=== PATIENT | female | born 1945 | race Caucasian/White ===

== ENCOUNTER → 2016-04-08 | Day surgery (SDC) | payer MEDICARE, OTHER ==
[~2016-04-08] MED LIST: B12,B-12,B 12500 MC1 PO; CIPRO250 MG PO; CIPROFLOXACIN250 MG PO; CYMBALTA30 MG PO; CYMBALTA60 MG PO; DARVOCET N 1001 TAB PO; FOSAMAX70 MG PO; HYDROCODONE BIT1 T11 PO; KEFLEX500 MG PO; LASIX40 MG PO; LEVOTHYROXIN0.075 MG PO; MECLIZINE12.5 MG PO; MIRALAX17 GM/DOSE PO; MOBIC7.5 MG PO; MOTRIN800 MG PO; NORCO 325 MG-51 TAB PO; NORVASC2.5 MG PO; NYSTATIN CREAM15 GM T; OXYBUTYNIN5 MG PO; POTASSIUM CHLO10 MEQ PO; PREVACID30 M1 PO; PROAIR HFA0.09 MG/AC INH; PYRIDIUM200 MG PO; REQUIP0.5 MG PO; SERTRALINE HCL100 MG PO; TRAMADOL HCL50 MG PO; TRAZADONE HYDR100 MG PO; TRAZODONE100 MG PO; VENTOLIN0.09 MG/AC INH; VITAMIN D31000 I1 PO; ZOCOR20 MG PO; [UNRECOGNIZED DRUG - REMARK]
--- NOTE | ~2016-04-08 | O ---
[place], [place] OPERATIVE NOTE NAME: DANIEL MANLEY UNIT #: [id number] ROOM: DOCTOR: TOMMIE CLARK,MARIO BIRTHDATE: [birth year] DOS: 04/08/2016 GASTROENDOSCOPIC REPORT INDICATIONS: The patient has presented with chief complaint of epigastric distress, dyspepsia, constipation on MiraLax, on multi-medications and Prevacid. PROCEDURE: Today's procedure part of investigation is panendoscopy plus biopsy. PREMEDICATION: Versed and Diprivan. SCOPE: Olympus forward-viewing gastroscope Q10 video. REPORT: After putting the patient in the left lateral position and after application of lubricant to the scope, the scope was introduced. Thereafter, under direct visualization, I advanced through the length of esophagus without difficulty. Esophagus, cervicothoracic distally carefully examined. Gastric pouch was entered. Gastritis was noticed. Duodenal bulb, second and third part within normal limits. The patient extubated, tolerated procedure well. IMPRESSION: Small hiatal hernia, gastritis, status post biopsy. PLAN: Continuation with Prevacid 30 mg daily. Continuation with MiraLax. Continuation with Mobic; however, on p.r.n. base and on full stomach. Follow up routinely with you in office, p.r.n. visit with us in [facility]. MARIO REILLY MD CM:OPRECORD:OPERATIVE NOTE [id number] MARIO REILLY MD 04/08/16 1327 interface
--- NOTE | ~2016-04-08 | O ---
[place], [place] OPERATIVE NOTE NAME: DANIEL MANLEY UNIT #: [id number] ROOM: DOCTOR: MARIO REILLY MD BIRTHDATE: [birth year] DOS: 04/08/2016 INDICATIONS: This is a 70-year-old obese patient who presented with chief complaint of epigastric abdominal pain, dyspepsia as well as constipation, change in bowel habits, undergoing investigation. PAST MEDICAL HISTORY: Associated with hypertension, COPD, gastroesophageal reflux, hypothyroidism, chronic renal disease, dyspepsia. PAST SURGICAL HISTORY: Hysterectomy, neck fusion. ALLERGIES: PENICILLIN, SULFA, ASPIRIN, CODEINE, HYDROMORPHONE, TYLENOL. SOCIAL HISTORY: Nonsmoker, nonalcohol consumer. FAMILY HISTORY: Noncontributory. PROCEDURE: Today's procedure part of investigation is colonoscopy panendoscopy. PREMEDICATION: Versed and Diprivan. SCOPE: Olympus forward viewing colonoscope 10L video. Colon, mucosa, and vascularity carefully examined. Tortuosity of the colon appreciated. Base of the cecum explored, appendiceal orifice identified, photographed. Scope was gradually withdrawn. The patient extubated, tolerated procedure well. IMPRESSION: Tortuous colon, sessile polypoid lesion hepatic flexure, status post piecemeal polypectomy. PLAN AND DISCUSSION: We are going to proceed with panendoscopy. As far as the colon, constipation is concerned, the patient's limited activity and multi-medications on board including pain medication could be the culprit. On the other hand, the patient on Prevacid and Mobic. She is on MiraLax. The patient needs to have a panendoscopy. [place], [place] OPERATIVE NOTE NAME: DANIEL MANLEY UNIT #: [id number] ROOM: DOCTOR: MARIO REILLY MD BIRTHDATE: [birth year] MARIO REILLY MD CM:OPRECORD:OPERATIVE NOTE [id number] AFUA REILLY MD 04/08/16 1325 interface
[2016-04-08 07:02] VITALS: BP 132/67
[2016-04-08 08:08] VITALS: BP 127/55
[2016-04-08 08:13] VITALS: BP 127/71
[2016-04-08 08:28] VITALS: BP 127/71
== END | disposition home or self-care (01) ==
LOC: SDC 04-02 10:15
DX: K63.5 Polyp of colon (principal); K63.89 Other specified diseases of intestine; K29.50 Unspecified chronic gastritis without bleeding; K44.9 Diaphragmatic hernia without obstruction or gangrene; K21.9 Gastro-esophageal reflux disease without esophagitis; I10 Essential (primary) hypertension; J44.9 Chronic obstructive pulmonary disease, unspecified; E03.9 Hypothyroidism, unspecified; Z90.710 Acquired absence of both cervix and uterus; F32.9 Major depressive disorder, single episode, unspecified; F41.9 Anxiety disorder, unspecified; M19.90 Unspecified osteoarthritis, unspecified site; F43.10 Post-traumatic stress disorder, unspecified; D64.9 Anemia, unspecified; E53.8 Deficiency of other specified B group vitamins; E66.9 Obesity, unspecified; Z82.49 Family history of ischemic heart disease and other diseases of the circulatory system; Z87.891 Personal history of nicotine dependence

== ENCOUNTER → 2016-09-25 | Outpatient (CLI) | payer MEDICARE, OTHER ==
[~2016-09-25] MED LIST changes: +CIPRO500 MG PO; +DOK100 M1 PO; +GOOD NEIGHBOR M25 M1 PO; +KEFLEX500 M1 PO; -MECLIZINE12.5 MG PO; +NORCO 7.5-3251 EACH PO; +OMEPRAZOLE20 M2 PO
== END | disposition home or self-care (01) ==
LOC: RAD 11:30
DX: M81.0 Age-related osteoporosis without current pathological fracture (principal)

== ENCOUNTER 2016-09-28 07:46 | Emergency (ER) | payer MEDICARE, OTHER ==
[~2016-09-28] VITALS: Ht 165.1 cm; Wt 113.4 kg
[~2016-09-28 07:46] MED LIST changes: -CIPRO500 MG PO; -DOK100 M1 PO; -KEFLEX500 M1 PO; -NORCO 7.5-3251 EACH PO; -OMEPRAZOLE20 M2 PO
[2016-09-28] MEDS ORDERED: OMEPRAZOLE20 M2 PO (07:58)
[2016-09-28] MEDS ORDERED: NORCO 7.5-3251 EACH PO (08:01)
[2016-09-28] MEDS ORDERED: DOK100 M1 PO (08:02)
[2016-09-28 09:33] LABS: BASO % 0.7 % (0.0-1.0); EOS # 0.3 10*3/uL (0.0-0.4); EOS % 4.8 % (1.0-4.0); HEMATOCRIT 36.6 % (37.0-47.0); HEMOGLOBIN 11.8 g/dl (12.0-16.0); LYMPH # 1.7 10*3/uL (1.3-4.4); LYMPH % 29.6 % (27.0-41.0); MEAN CELL VOLUME 92.2 fl (81.0-99.0); MEAN CORPUSCULAR HGB 29.7 pg (27.0-31.0); MEAN CORPUSCULAR HGB CONC 32.2 g/dl (33.0-37.0); MEAN PLATELET VOLUME 9.9 fl (9.6-12.3); MONO # 0.3 10*3/uL (0.1-1.0); MONO % 5.8 % (3.0-9.0); NEUT # 3.3 10*3/uL (2.3-7.9); NEUT % 58.9 % (47.0-73.0); PLATELET COUNT AUTOMATED 169 10*3/uL (130-400); RED BLOOD COUNT 3.97 10*6/uL (4.10-5.10); RED CELL DISTRI WIDTH 12.2 % (0-14.5); WHITE BLOOD COUNT 5.7 10*3/uL (4.8-10.8)
[2016-09-28 09:39] LABS: PROTHROMBIN TIME 10.6 SECONDS (9.0-12.4)
[2016-09-28 09:50] LABS: BILIRUBIN NEGATIVE (NEGATIVE); BLOOD NEGATIVE (NEGATIVE); CLARITY CLOUDY (CLEAR); COLOR YELLOW (YELLOW); GLUCOSE NEGATIVE (NEGATIVE); KETONE TRACE (NEGATIVE); LEUKO ESTERASE 1+ (NEGATIVE); NITRITE POSITIVE (NEGATIVE); PH 7.5 (5.0-9.0); PROTEIN NEGATIVE (NEGATIVE); UROBILINOGEN 0.2 E.U./dl (0.2-1.0)
[2016-09-28 09:52] LABS: ALBUMIN 3.1 gm/dl (3.1-4.5); ALKALINE PHOSPHATASE 59 U/L (45-117); BILIRUBIN, TOTAL 0.3 mg/dl (0.2-1.0); BUN 11 mg/dl (7-24); C-REACTIVE PROTEIN 0.54 MG/DL (0-0.3); CARBON DIOXIDE 28 mmol/L (21-32); CHLORIDE 110 mmol/L (98-107); CPK 57 U/L (26-192); EST GLOM FILT AFRICAN AMERICAN 45 ml/min; GLUCOSE 95 mg/dL (65-99); MAGNESIUM 1.9 mg/dL (1.5-2.1); POTASSIUM 3.7 mmol/L (3.5-5.1); SGOT/AST 18 IU/L (3-35); SGPT/ALT 16 U/L (12-78); SODIUM 144 mmol/L (136-145); TOTAL PROTEIN 6.3 gm/dL (6.4-8.2)
[2016-09-28 09:53] LABS: CKMB < 0.5 ng/ml (0.5-3.6); TROPONIN I < 0.015 ng/ml (<0.045)
[2016-09-28 10:01] LABS: BACTERIA 4+; URINE REFLEX COMMENT YES (NO)
[2016-09-28 10:14] VITALS: BP 133/75
[2016-09-28] MEDS ORDERED: CIPRO500 MG PO (10:18)
[2016-09-28] MEDS ORDERED: KEFLEX500 M1 PO (10:24)
== END 2016-09-28 10:20 ==
LOC: ED 07:46
PROVIDERS: Internal Medicine
DX: G89.29 Other chronic pain (principal); M25.562 Pain in left knee; M25.552 Pain in left hip; M54.9 Dorsalgia, unspecified; N18.9 Chronic kidney disease, unspecified; Z88.0 Allergy status to penicillin; Z88.2 Allergy status to sulfonamides; Z88.6 Allergy status to analgesic agent; Z88.8 Allergy status to other drugs, medicaments and biological substances; Z79.899 Other long term (current) drug therapy; W18.30XA Fall on same level, unspecified, initial encounter; Y93.89 Activity, other specified; Y92.9 Unspecified place or not applicable; Y99.9 Unspecified external cause status

== ENCOUNTER → 2017-01-07 | Outpatient (CLI) | payer MEDICARE, OTHER ==
[~2017-01-07] MED LIST changes: +CIPRO500 MG PO; +DOK100 M1 PO; +KEFLEX500 M1 PO; +NORCO 7.5-3251 EACH PO; +OMEPRAZOLE20 M2 PO
== END | disposition home or self-care (01) ==
LOC: NM 00:48
DX: K80.20 Calculus of gallbladder without cholecystitis without obstruction (principal); K59.00 Constipation, unspecified

== ENCOUNTER → 2017-09-10 | Outpatient (CLI) | payer MEDICARE, OTHER | END | disposition home or self-care (01) | LOC: RAD 03:08 | DX: Z13.820 Encounter for screening for osteoporosis (principal); M81.0 Age-related osteoporosis without current pathological fracture; N95.9 Unspecified menopausal and perimenopausal disorder; M19.90 Unspecified osteoarthritis, unspecified site ==

== ENCOUNTER → 2018-06-23 | Outpatient (CLI) | payer MEDICARE, OTHER | END | disposition home or self-care (01) | LOC: MAMMO 10:37 | DX: Z12.31 Encounter for screening mammogram for malignant neoplasm of breast (principal); R10.2 Pelvic and perineal pain ==

== ENCOUNTER → 2018-07-01 | Outpatient (CLI) | payer MEDICARE, OTHER | END | disposition home or self-care (01) | LOC: CT 06-27 10:00 | DX: R43.0 Anosmia (principal); H57.11 Ocular pain, right eye; R42 Dizziness and giddiness; I10 Essential (primary) hypertension ==

== ENCOUNTER → 2018-09-22 | Outpatient (CLI) | payer MEDICARE, OTHER | END | disposition home or self-care (01) | LOC: MRI 01:27 | DX: G91.9 Hydrocephalus, unspecified (principal); R51 Headache; H53.8 Other visual disturbances; H93.13 Tinnitus, bilateral ==

== ENCOUNTER → 2020-05-16 | Day surgery (SDC) | payer MEDICARE, OTHER ==
[~2020-05-16] VITALS: Ht 157.4 cm; Wt 95.7 kg
[~2020-05-16] MED LIST changes: +ALENDRONATE SOD35 M1 PO; +ARTIFICIAL TEA1 EACH OU; +ASPERCREME LIDO73 ML T; +CALTRATE 600 +1 EACH PO; +CENTRUM SILVER1 EACH PO; +CLARITIN10 MG PO; +CRANBERRY URIN1 EACH PO; +FLONASE ALLERG9.9 ML NAS; +GOOD NEIGHBOR P20 MG PO; -LEVOTHYROXIN0.075 MG PO; +LEVOTHYROXINE125 MCG PO; +MILK OF MA400 MG/5 M PO; +MORPHINE SULFAT15 MG PO; +ONDANSETRON HYDR4 M1 PO; +PERCOCET 5-3251 EACH PO; +PRISTIQ50 MG PO; +PROPRANOLOL HCL10 MG PO; +Percocet 325 MG1 TAB PO; +REFRESH OPTIVE10 M2 OU; +TYLENOL325 M1 PO; +ZOFRAN4 MG PO
[2020-05-16 07:15] VITALS: BP 126/71
[2020-05-16 09:25] VITALS: BP 128/90
[2020-05-16 09:40] VITALS: BP 143/63
[2020-05-16 09:55] VITALS: BP 154/73
[2020-05-16 10:10] VITALS: BP 149/69
[2020-05-16 10:55] VITALS: BP 152/71
== END ==
LOC: SDC 05-13 09:30
PROVIDERS: ATTEND Surgery
DX: K80.10 Calculus of gallbladder with chronic cholecystitis without obstruction (principal); I25.10 Atherosclerotic heart disease of native coronary artery without angina pectoris; R11.2 Nausea with vomiting, unspecified; J44.9 Chronic obstructive pulmonary disease, unspecified; E03.9 Hypothyroidism, unspecified; F41.9 Anxiety disorder, unspecified; F32.9 Major depressive disorder, single episode, unspecified; I12.9 Hypertensive chronic kidney disease with stage 1 through stage 4 chronic kidney disease, or unspecified chronic kidney disease; N18.30 Chronic kidney disease, stage 3 unspecified; E66.9 Obesity, unspecified; Z79.899 Other long term (current) drug therapy; Z88.0 Allergy status to penicillin; Z88.2 Allergy status to sulfonamides; Z88.6 Allergy status to analgesic agent; Z88.8 Allergy status to other drugs, medicaments and biological substances

== ENCOUNTER → 2020-05-28 | Outpatient (CLI) | payer MEDICARE, OTHER ==
[2020-05-28 10:36] LABS: BASO # 0.1 10*3/uL (0.0-0.1); BASO % 0.7 % (0.0-1.0); EOS # 0.4 10*3/uL (0.0-0.4); EOS % 4.4 % (1.0-4.0); HEMATOCRIT 38.6 % (37.0-47.0); LYMPH # 2.1 10*3/uL (1.3-4.4); LYMPH % 22.7 % (27.0-41.0); MEAN CELL VOLUME 95.1 fl (81.0-99.0); MEAN CORPUSCULAR HGB 29.8 pg (27.0-31.0); MEAN CORPUSCULAR HGB CONC 31.3 g/dl (33.0-37.0); MEAN PLATELET VOLUME 9.6 fl (9.6-12.3); MONO # 0.5 10*3/uL (0.1-1.0); MONO % 5.2 % (3.0-9.0); NEUT % 66.2 % (47.0-73.0); PLATELET COUNT AUTOMATED 392 10*3/uL (130-400); RED BLOOD COUNT 4.06 10*6/uL (4.10-5.10); RED CELL DISTRI WIDTH 12.2 % (0-14.5)
[2020-05-28 11:08] LABS: ALBUMIN 2.8 gm/dl (3.1-4.5); CREATININE 1.21 mg/dL (0.55-1.02)
== END | disposition home or self-care (01) ==
LOC: LAB 10:11
PROVIDERS: ATTEND Surgery
DX: R11.2 Nausea with vomiting, unspecified (principal)

== ENCOUNTER → 2020-05-30 | Outpatient (CLI) | payer MEDICARE, OTHER | END | disposition home or self-care (01) | LOC: NM 06:55 | PROVIDERS: ATTEND Surgery | DX: R11.2 Nausea with vomiting, unspecified (principal) ==

== ENCOUNTER → 2020-06-07 | Outpatient (CLI) | payer MEDICARE, OTHER | END | disposition home or self-care (01) | LOC: CT 08:51 → LAB 09:00 → CT 09:00 | PROVIDERS: ATTEND Surgery | DX: Z01.818 Encounter for other preprocedural examination (principal); K52.9 Noninfective gastroenteritis and colitis, unspecified; R23.3 Spontaneous ecchymoses; N26.1 Atrophy of kidney (terminal); J98.11 Atelectasis; Z90.49 Acquired absence of other specified parts of digestive tract ==

== ENCOUNTER → 2021-06-10 | Outpatient (CLI) | payer MEDICARE, OTHER ==
[~2021-06-10] MED LIST changes: +CEFUROXIME AXE250 MG PO; +CETIRIZINE HYDR10 MG PO; +HYDROXYZINE PAM25 M1 PO; +MECLIZINE HCL25 M2 PO; +PRISTIQ100 MG PO; +VITAMIN D350 MC2 GT
== END | disposition home or self-care (01) ==
LOC: CT 09:00
PROVIDERS: ATTEND Internal Medicine
DX: K44.9 Diaphragmatic hernia without obstruction or gangrene (principal); M47.816 Spondylosis without myelopathy or radiculopathy, lumbar region; N26.1 Atrophy of kidney (terminal)

== ENCOUNTER 2022-10-22 10:22 | Emergency (ER) | payer MEDICARE ==
[~2022-10-22] VITALS: Wt 98.9 kg
[2022-10-22 10:38] VITALS: BP 103/48
[2022-10-22 10:50] LABS: BASO # 0.1 10*3/uL (0.0-0.1); BASO % 0.4 % (0.0-1.0); EOS % 0.3 % (1.0-4.0); HEMATOCRIT 35.4 % (37.0-47.0); LYMPH # 1.7 10*3/uL (1.3-4.4); LYMPH % 13.6 % (27.0-41.0); MEAN CELL VOLUME 94.7 fl (81.0-99.0); MEAN CORPUSCULAR HGB CONC 32.8 g/dl (33.0-37.0); MEAN PLATELET VOLUME 10.4 fl (9.6-12.3); MONO # 1.4 10*3/uL (0.1-1.0); MONO % 11.3 % (3.0-9.0); NEUT # 9.3 10*3/uL (2.3-7.9); PLATELET COUNT AUTOMATED 130 10*3/uL (130-400); RED BLOOD COUNT 3.74 10*6/uL (4.10-5.10); RED CELL DISTRI WIDTH 12.1 % (0-14.5); WHITE BLOOD COUNT 12.6 10*3/uL (4.8-10.8)
[2022-10-22 11:15] LABS: POTASSIUM 4.4 mmol/L (3.4-5.1); TOTAL PROTEIN 5.9 gm/dL (6.0-8.0)
[2022-10-22 11:58] LABS: BILIRUBIN Negative (Negative); BLOOD 2+ (Negative); CLARITY Turbid (Clear); COLOR Dark Yellow (Yellow); GLUCOSE Negative (Negative); KETONE Trace (Negative); LEUKO ESTERASE 3+ (Negative); NITRITE Positive (Negative)
[2022-10-22 12:20] LABS: BACTERIA 4+; WBC TNTC wbc/hpf (0-5)
[2022-10-22] MEDS ORDERED: TRAMADOL HCL50 MG PO (14:10)
[2022-10-22] MEDS ORDERED: CIPRO500 MG PO (14:10)
== END 2022-10-22 15:05 | disposition home or self-care (01) ==
LOC: ED 10:22
PROVIDERS: Emergency Medicine
DX: N39.0 Urinary tract infection, site not specified (principal); F32.A Depression, unspecified; F41.9 Anxiety disorder, unspecified; M19.90 Unspecified osteoarthritis, unspecified site; D64.9 Anemia, unspecified; Z88.0 Allergy status to penicillin; Z88.2 Allergy status to sulfonamides; Z88.5 Allergy status to narcotic agent; Z88.8 Allergy status to other drugs, medicaments and biological substances; Z90.89 Acquired absence of other organs; Z90.710 Acquired absence of both cervix and uterus; Z98.890 Other specified postprocedural states

== ENCOUNTER 2023-02-22 18:13 | Emergency (ER) | payer MEDICARE ==
[2023-02-22 18:21] VITALS: BP 118/60
== END 2023-02-22 21:27 | disposition home or self-care (01) ==
LOC: ED 18:13
DX: S93.401A Sprain of unspecified ligament of right ankle, initial encounter (principal); F32.A Depression, unspecified; F41.9 Anxiety disorder, unspecified; M19.90 Unspecified osteoarthritis, unspecified site; N18.9 Chronic kidney disease, unspecified; J44.9 Chronic obstructive pulmonary disease, unspecified; E87.6 Hypokalemia; D64.9 Anemia, unspecified; Z88.0 Allergy status to penicillin; Z88.2 Allergy status to sulfonamides; Z88.6 Allergy status to analgesic agent; Z88.5 Allergy status to narcotic agent; Z88.8 Allergy status to other drugs, medicaments and biological substances; Z90.710 Acquired absence of both cervix and uterus; Z90.89 Acquired absence of other organs; W19.XXXA Unspecified fall, initial encounter; Y93.89 Activity, other specified; Y92.129 Unspecified place in nursing home as the place of occurrence of the external cause; Y99.8 Other external cause status

== ENCOUNTER 2023-05-26 08:36 | Emergency (ER) | payer MEDICARE, OTHER ==
[~2023-05-26] VITALS: Ht 167.6 cm; Wt 90.7 kg
[2023-05-26] MEDS ORDERED: Acetaminophen/Oxycodone 5 MG/325 MG TABLET PO ONE (08:50)
[2023-05-26 10:28] VITALS: BP 120/48
== END 2023-05-26 14:19 ==
LOC: ED 08:36
DX: S09.8XXA Other specified injuries of head, initial encounter (principal); M54.50 Low back pain, unspecified; M25.551 Pain in right hip; F32.A Depression, unspecified; F41.9 Anxiety disorder, unspecified; M19.90 Unspecified osteoarthritis, unspecified site; D64.9 Anemia, unspecified; J44.9 Chronic obstructive pulmonary disease, unspecified; Z88.0 Allergy status to penicillin; Z88.2 Allergy status to sulfonamides; Z88.5 Allergy status to narcotic agent; Z88.6 Allergy status to analgesic agent; Z88.8 Allergy status to other drugs, medicaments and biological substances; Z90.710 Acquired absence of both cervix and uterus; Z90.89 Acquired absence of other organs; Z98.890 Other specified postprocedural states; W07.XXXA Fall from chair, initial encounter; Y93.89 Activity, other specified; Y92.129 Unspecified place in nursing home as the place of occurrence of the external cause; Y99.8 Other external cause status

== ENCOUNTER 2023-06-20 22:20 | Emergency (ER) | payer MEDICARE, OTHER ==
[~2023-06-20] VITALS: Ht 157.4 cm; Wt 90.7 kg
[2023-06-21 06:36] VITALS: BP 125/62
== END 2023-06-21 07:16 ==
LOC: ED 22:20
DX: S00.93XA Contusion of unspecified part of head, initial encounter (principal); G91.2 (Idiopathic) normal pressure hydrocephalus; F32.A Depression, unspecified; F41.9 Anxiety disorder, unspecified; M19.90 Unspecified osteoarthritis, unspecified site; D64.9 Anemia, unspecified; J44.9 Chronic obstructive pulmonary disease, unspecified; Z88.0 Allergy status to penicillin; Z88.2 Allergy status to sulfonamides; Z88.5 Allergy status to narcotic agent; Z88.8 Allergy status to other drugs, medicaments and biological substances; Z90.710 Acquired absence of both cervix and uterus; Z90.89 Acquired absence of other organs; Z98.890 Other specified postprocedural states; W05.0XXA Fall from non-moving wheelchair, initial encounter; Y93.89 Activity, other specified; Y92.129 Unspecified place in nursing home as the place of occurrence of the external cause; Y99.8 Other external cause status

== ENCOUNTER 2023-12-25 00:53 | Observation (INO) | payer OTHER ==
[~2023-12-25] VITALS: Ht 157.5 cm; Wt 77.8 kg
[2023-12-25] VITALS (9 sets, daily range): BP systolic 90–126; BP diastolic 29–81
[~2023-12-25 00:53] MED LIST changes: +OXYBUTYNIN CHLOR5 M1 PO; -OXYBUTYNIN5 MG PO
[2023-12-25 01:53] LABS: BASO % 0.5 % (0.0-1.0); EOS # 0.1 10*3/uL (0.0-0.4); EOS % 0.7 % (1.0-4.0); LYMPH # 1.3 10*3/uL (1.3-4.4); LYMPH % 14.7 % (27.0-41.0); MEAN CELL VOLUME 103.4 fl (81.0-99.0); MEAN CORPUSCULAR HGB 32.8 pg (27.0-31.0); MEAN CORPUSCULAR HGB CONC 31.7 g/dl (33.0-37.0); MEAN PLATELET VOLUME 10.1 fl (9.6-12.3); MONO # 1.2 10*3/uL (0.1-1.0); MONO % 13.6 % (3.0-9.0); NEUT # 6.1 10*3/uL (2.3-7.9); NEUT % 69.2 % (47.0-73.0); PLATELET COUNT AUTOMATED 97 10*3/uL (130-400); RED CELL DISTRI WIDTH 12.6 % (0-14.5); WHITE BLOOD COUNT 8.7 10*3/uL (4.8-10.8)
[2023-12-25 02:10] LABS: BILIRUBIN Negative (Negative); BLOOD 2+ (Negative); CLARITY Turbid (Clear); COLOR Yellow (Yellow); GLUCOSE Negative (Negative); KETONE 1+ (Negative); LEUKO ESTERASE 3+ (Negative); NITRITE Positive (Negative); PH 5.5 (4.5-8.0); SPECIFIC GRAVITY 1.025 (1.001-1.030)
[2023-12-25 02:34] LABS: BACTERIA 4+; RBC 31-40 rbc/hpf (0-2); WBC TNTC wbc/hpf (0-5)
[2023-12-25] MEDS ORDERED: RIVASTIGMINE1 EAC1 T (03:29)
[2023-12-25] MEDS ORDERED: DEPAKOTE500 M2 PO (03:31)
[2023-12-25] MEDS ORDERED: ROZEREM8 MG PO (03:32)
[2023-12-25] MEDS ORDERED: PLAVIX75 M1 PO (03:34)
[2023-12-25] MEDS ORDERED: Ceftriaxone Sodium 1 GM/10 ML SYR IV ONE (03:40)
[2023-12-25] MEDS ORDERED: SODIUM CHLORIDE 0.9% 1,000 ML IV ONE (03:45)
[2023-12-25] MEDS ORDERED: SODIUM CHLORIDE 0.9% 1,000 ML IV SCH (08:45)
[2023-12-25] MEDS ORDERED: Acetaminophen/Oxycodone 5 MG/325 MG TABLET PO PRN (08:50)
[2023-12-25] MEDS ORDERED: MORPHINE SULFATE 15 MG PO SCH (10:00)
[2023-12-25] MEDS ORDERED: Oxybutynin Chloride 5 MG TAB PO SCH (10:00)
[2023-12-25] MEDS ORDERED: Rivastigmine Tartrate 9.5 MG/24 HR PATCH T SCH (10:00)
[2023-12-25] MEDS ORDERED: Clopidogrel Hydrogen Sulfate 75 MG TAB PO SCH (10:00)
[2023-12-25] MEDS ORDERED: Desvenlafaxine Succinate 50 MG TER PO SCH (10:00)
[2023-12-25] MEDS ORDERED: FAMOTIDINE 20 MG TAB PO SCH (10:00)
[2023-12-25] MEDS ORDERED: Ropinirole Hydrochloride 0.5 MG TAB PO SCH (10:00)
[2023-12-25] MEDS ORDERED: DOCUSATE SODIUM 100 MG CAP PO SCH (10:00)
[2023-12-25] MEDS ORDERED: ACETAMINOPHEN 325 MG TAB PO PRN (14:05)
[2023-12-25] MEDS ORDERED: Ceftriaxone Sodium 1 GM,IV 1 EA in SYRINGE INFUSION 10 ML IV SCH (22:00)
[2023-12-26] VITALS: BP 161/87
[2023-12-26 00:24] VITALS: BP 112/79
[2023-12-26 00:45] VITALS: BP 166/80
[2023-12-26 07:14] LABS: BASO % 0.4 % (0.0-1.0); EOS # 0.1 10*3/uL (0.0-0.4); EOS % 0.6 % (1.0-4.0); HEMATOCRIT 30.6 % (37.0-47.0); LYMPH # 0.9 10*3/uL (1.3-4.4); MEAN CELL VOLUME 103.7 fl (81.0-99.0); MEAN CORPUSCULAR HGB 32.9 pg (27.0-31.0); MEAN CORPUSCULAR HGB CONC 31.7 g/dl (33.0-37.0); MEAN PLATELET VOLUME 11.1 fl (9.6-12.3); MONO % 12.5 % (3.0-9.0); NEUT # 5.8 10*3/uL (2.3-7.9); PLATELET COUNT AUTOMATED 110 10*3/uL (130-400); RED BLOOD COUNT 2.95 10*6/uL (4.10-5.10); RED CELL DISTRI WIDTH 12.7 % (0-14.5); WHITE BLOOD COUNT 7.7 10*3/uL (4.8-10.8)
[2023-12-26 08:00] VITALS: BP 120/60
[2023-12-26] MEDS ORDERED: NYSTATIN 15 GM BOT T SCH (10:00)
[2023-12-26 12:00] VITALS: BP 147/70
== END 2023-12-26 15:43 ==
LOC: ED 00:53 → EDHOLD 05:33 → 4E 23:46
PROVIDERS: Emergency Medicine; ADMIT Internal Medicine; ATTEND Internal Medicine
DX: N17.9 Acute kidney failure, unspecified (principal); N39.0 Urinary tract infection, site not specified; G93.41 Metabolic encephalopathy; E03.9 Hypothyroidism, unspecified; M81.0 Age-related osteoporosis without current pathological fracture; F33.1 Major depressive disorder, recurrent, moderate; G89.4 Chronic pain syndrome; G30.1 Alzheimer's disease with late onset; F02.80 Dementia in other diseases classified elsewhere, unspecified severity, without behavioral disturbance, psychotic disturbance, mood disturbance, and anxiety; Z79.899 Other long term (current) drug therapy

== ENCOUNTER → 2023-12-31 | Outpatient (CLI) | payer OTHER ==
[~2023-12-31] MED LIST changes: +DEPAKOTE500 M2 PO; +PLAVIX75 M1 PO; +RIVASTIGMINE1 EAC1 T; +ROZEREM8 MG PO
== END | disposition home or self-care (01) ==
LOC: ORTHO 12-30 14:37
PROVIDERS: ATTEND Orthopaedic Surgery
DX: M19.012 Primary osteoarthritis, left shoulder (principal); M25.712 Osteophyte, left shoulder; M25.812 Other specified joint disorders, left shoulder; M25.512 Pain in left shoulder